=== PATIENT | male | born 1980 | race African-American/Black ===

== ENCOUNTER 2018-03-09 18:07 | Emergency (ER) | payer SELFPAY ==
[~2018-03-09] VITALS: Ht 180.3 cm; Wt 97.7 kg
[~2018-03-09 18:07] MED LIST: OXYCODONE15 MG PO; ULTRAM50 MG OR
[2018-03-09] MEDS ORDERED: AMOXICILLIN500 MG PO (19:25)
[2018-03-09] MEDS ORDERED: PERCOCET 5/325M1 TAB PO (19:25)
[2018-03-09 19:38] VITALS: BP 131/88
== END 2018-03-09 19:38 | disposition home or self-care (01) | DRG 159 ==
LOC: ED 18:07
DX: K08.89 Other specified disorders of teeth and supporting structures (principal)

== ENCOUNTER 2023-01-13 06:00 | Emergency (ER) | payer SELFPAY ==
[2023-01-13] VITALS (12 sets, daily range): BP systolic 112–145; BP diastolic 57–83
[~2023-01-13] VITALS: Ht 180.3 cm; Wt 81.0 kg
[~2023-01-13 06:00] MED LIST changes: +AMOXICILLIN500 MG PO; +PERCOCET 5/325M1 TAB PO
[2023-01-13 06:23] LABS: BASO% 0.2 % (0-3); EOS% 2.4 % (0-8); IMMATURE GRANULOCYTES 0.6 % (0.0-5.0); LYMPH% 32.9 % (15-41); MEAN CELL VOLUME 86.7 fL CALC (80.0-100.0); MEAN CORPUSCULAR HGB 27.9 pG CALC (26.0-32.0); MEAN CORPUSCULAR HGB CONC 32.1 g/dL CAL (32.0-36.0); MONO% 12.6 % (2-13); NEUT# 3.42 thou/uL (1.82-7.42); NEUT% 51.3 % (42-76); RED BLOOD COUNT 5.42 mill/uL (4.70-6.10); RED CELL DISTRI WIDTH 13.3 % (11.5-15.5)
[2023-01-13 06:32] LABS: HEMOGLOBIN 15.1 g/dl (14.0-18.0)
[2023-01-13] MEDS ORDERED: TAMSULOSIN0.4 MG PO (08:33)
[2023-01-13] MEDS ORDERED: MOTRIN800 MG PO (08:33)
[2023-01-13 08:43] LABS: ALKALINE PHOSPHATASE 84 u/l (38-126); ANION GAP 11 (6-22 (CALC)); BUN 12 mg/dL (9-20); BUN/CREATININE RATIO 10 (12-20 (CALC)); CARBON DIOXIDE 26 mmol/l (22-30); CHLORIDE 105 mmol/l (95-108); CREATININE 1.2 mg/dL (0.7-1.3); GFR FOR AFR.AMER. > 60 ML/MIN (>=60 (CALC)); GFR OTHER RACES > 60 ML/MIN (>=60 (CALC)); LIPASE 91 u/l (23-300); SGOT/AST 38 u/l (17-59); SODIUM 139 mmol/l (137-146)
[2023-01-13 08:47] LABS: ALBUMIN 3.9 g/dL (3.2-5.0); BILIRUBIN, TOTAL 0.5 mg/dL (0.2-1.3); TOTAL PROTEIN 7.3 g/dL (6.3-8.2)
== END 2023-01-13 10:00 | disposition home or self-care (01) | DRG 694 ==
LOC: ED 06:00
PROVIDERS: Internal Medicine
DX: N13.2 Hydronephrosis with renal and ureteral calculous obstruction (principal)